=== PATIENT | female | born 1970 | race Caucasian/White ===

== ENCOUNTER 2024-10-18 21:36 | Emergency (ER) | payer OTHER, SELFPAY ==
--- NOTE | ~2024-10-18 | CT_ITS ---
CT Scan of the Chest without Contrast: Clinical Indication: Distal right clavicle sclerotic lesion Technique: Contiguous sections were acquired throughout the chest without intravenous contrast. Dose reduction technique was used on this scan by utilizing automated exposure control and iterative recon struction technique. The dose-length product (DLP) was 199.23 mGy-cm. Findings: There is no evidence of any significant mediastinal, hilar or axillary lymphadenopathy. Coronary jen ry calcifications are present. There is no evidence of pleural or pericardial effusion. There are a few loosely grouped subcentimeter groundglass nodules in the left lower lobe (axial image 63). Remainder of lungs are clear. Images through the upper abdomen reveal no abnormalities. Sclerotic area present at the distal right clavicle near the AC joint (axial image 14). Impression: Sclerotic lesion of the distal right clavicle near the AC joint. Precise etiology remains unclear, bu t there is narrow zone of transition, and no associated soft tissue mass or periosteal reaction. This is most likely a benign lesion. Comparison with prior exams would be useful. Consider follow-up exam or bone scan as indicated. A few loosely grouped subcentimeter groundglass nodules in left lower lobe could reflect a focal infe ctious/inflammatory process. Reviewed, dictated and finalized at location M. Impression: Sclerotic lesion of the distal right clavicle near the AC joint. Precise etiolo gy remains unclear, but there is narrow zone of transition, and no associated s oft tissue mass or periosteal reaction. This is most likely a benign lesion. Co mparison with prior exams would be useful. Consider follow-up exam or bone scan as indicated. A few loosely grouped subcentimeter groundglass nodules in left lower lobe coul d reflect a focal infectious/inflammatory process.
--- NOTE | ~2024-10-18 | XR_ITS ---
EXAMINATION: XR chest 2V Exam Date/Time: 10/18/2024 23:00 CDT HISTORY: Cough, SOB, WEAKNESS Comparison: None. RESULT: Lines, tubes, and devices: None. Lungs and pleura: Clear. Cardiomediastinal silhouette: Stable. Other: No acute osseous or upper abdominal finding. Sclerotic lesion in the distal right clavicle. IMPRESSION: No acute cardiopulmonary process. Sclerotic lesion in the distal right clavicle, may represent metastasis, enchondroma or bone infarct, amongst other lesions. Recommend comparison to outside studies if available to evaluate for stabilit y. Reviewed, dictated and finalized at location K. IMPRESSION: No acute cardiopulmonary process. Sclerotic lesion in the distal right clavicle, may represent metastasis, enchon droma or bone infarct, amongst other lesions. Recommend comparison to outside s tudies if available to evaluate for stability.
--- NOTE | ~2024-10-18 | CT_ITS ---
Non-contrast Head and Sinus CT History: Sinus congestion, fever Technique: Axial non-contrast imaging of the brain and sinuses was performed. Dose reduction techniq ue was used on this scan by utilizing automated exposure control and iterative reconstruction techniq ue. The dose-length product (DLP) was 681.00 mGy-cm. Findings: There is no evidence of intracranial hemorrhage, mass lesion, or acute infarct. Brain par enchyma appears normal. The ventricles and subarachnoid spaces are normal in size. The calvarium ap pears normal. The paranasal sinuses and mastoid air cells are clear. Impression: No significant abnormality seen in the brain or sinuses. Reviewed, dictated and finalized at location . Impression: No significant abnormality seen in the brain or sinuses.
[2024-10-18 22:00] VITALS: BP 137/101; PULSE 100; RESP 18; TEMP 36.2; O2SAT 97
[2024-10-18 23:39] LABS: Influenza A QL RT-PCR Negative (Negative); Influenza B QL RT-PCR Negative (Negative); RSV RNA, RT-PCR Negative (Negative); SARS-CoV-2 RNA PCR Negative (Negative)
[2024-10-19] VITALS (16 sets, daily range): BP systolic 110–125; BP diastolic 65–88; PULSE 85–106; RESP 13–23; TEMP 36.7; O2SAT 95–100
--- NOTE | 2024-10-19 00:26 | PC.NURSE ---
Pt presents to ED c/o feeling congested for 1.5months with no improvement, and febrile for last couple days. Per pt took tylenol 2hrs ago for 101 fever, upon being roomed pt temp 98. VS WNL
--- NOTE | 2024-10-19 00:42 | ED.URI ---
HPI - URI/Sore Throat General Chief Complaint: Upper Respiratory Infection Stated Complaint: Fever, cough, fatigue, congestion x 4 days Time Seen by Provider: 10/19/24 00:39 Source: patient and other Mode of arrival: ambulatory Limitations: no limitations History of Present Illness HPI Narrative: Patient presents with report of fever, cough, fatigue and congestion of 4 days duration but really with off/on symptoms over the past 1.5 months. She reports a temp of 101.5 at home which was the maximum. Non smoker. Denies any previous underlying respiratory conditions. Thinks it might be due to sinus drainage. Has been alternating ibuprofen and Tylenol (last dose [employer] was Tyenol). Increased weakness. Cough is productive of scant mucous. No hemoptysis. In mid August she was given a 5 day antibiotic (Z pack) by PCP. No chest pain but she will feel short of breath when she has coughing spells, not otherwise. Related Data Allergies Allergy/AdvReac Type Severity Reaction Status Date / Time No Known Allergies Allergy Verified 10/18/24 21:38 [facility] Social History Social History Smoking status: Never smoker Exam Narrative: GENERAL: Well-appearing, well-nourished, and in no acute distress. HEAD: Normocephalic, atraumatic. EYES: Non injected, non icteric ENT: Nares clear, no rhinorrhea or epistaxis. Gross auditory acuity intact. NECK: Supple. No meningismus. CHEST: Speaking in full sentences. No respiratory distress. Lungs clear without wheezes, crackles, rhonchi. Clavicles bilaterally grossly normal on appearance, no tenderness or deformity on palpation. HEART: Regular rate and rhythm. . ABDOMEN: Soft, nondistended. No rigidity or guarding. Not peritoneal EXTREMITIES: Normal range of motion. No lower extremity edema. SKIN: Warm, dry, no rash. NEURO: No focal deficits. Alert and oriented. Answering questions. Following commands. Normal speech without aphasia or dysarthria. PSYCH: Normal mood and affect. Course Vital Signs Vital signs: Vital Signs Temperature 97.1 F L 10/18/24 22:00 Pulse Rate 100 10/18/24 22:00 Respiratory Rate 18 10/18/24 22:00 Blood Pressure 137/101 H 10/18/24 22:00 Pulse Oximetry 97 10/18/24 22:00 Oxygen Delivery Room Air 10/18/24 22:00 Temperature 98.1 F 10/19/24 00:17 Pulse Rate 99 10/19/24 04:18 Respiratory Rate 16 10/19/24 04:18 Blood Pressure 115/74 10/19/24 04:18 Pulse Oximetry 99 10/19/24 04:18 Oxygen Delivery Room Air 10/18/24 22:00 MDM - URI/Sore Throat MDM Narrative Medical decision making narrative: Patient presents with report of cough, fatigue, and congestion as well as fever of 4 days duration. Has been dealing with symptoms intermittently for 6 weeks, s/p azithromycin course in August. In the emergency department she is afebrile with vital signs notable for hypertension, particularly diastolic blood pressure. Repeat has normalized without intervention. Viral swab negative. Questionable sclerotic lesion on CXR. Proceeded with CT imaging. No commentary on it on this imaging or other etiology elucidated. Discharged in stable condition and advised follow up with PCP. Rx for Karli field. Differential Diagnosis Differential diagnosis: Likely upper respiratory infection, sinusitis, viral infection, bronchitis, influenza and other (occult pneumonia; abscess) Lab Data Attestation: I reviewed the patient's lab results. Labs: Lab Results 10/18/24 Range/Units 22:50 Influenza A (RT-PCR) Negative (Negative) Influenza B (RT-PCR) Negative (Negative) RSV (RT-PCR) Negative (Negative) SARS-CoV-2 RNA (RT-PCR) Negative (Negative) Imaging Data Radiologist's impression: Impressions Chest X-Ray 10/18/24 23:39 IMPRESSION: No acute cardiopulmonary process. Sclerotic lesion in the distal right clavicle, may represent metastasis, enchondroma or bone infarct, amongst other lesions. Recommend comparison to outside studies if available to evaluate for stability. CT Head Stat Rad: No acute hemorrhage, hydrocephalus, or herniation. CT Sinuses: No acute sinusitis. Mild left ethmoid sinus mucosal thickening. CT Chest w/o contrast Stat Rad: No focal consolidation, pleural effusion, or pneumothorax. Heart within normal limits. Vasculature within normal limits. Thyroid within normal limits. Mediastinum in lymph nodes within normal limits. Superior abdomen within normal limits. Musculoskeletal with in normal limits. Discharge Plan Discharge Clinical Impression: Bronchitis Patient Disposition: Home Condition: Stable Instructions: Antibiotic Form, Acute Bronchitis (ED), Chronic Cough (ED) Additional Instructions: No evidence of a pneumonia or other concerning issues with your lungs on he either chest x-ray or CT scan. Your Xray was concerning for possible Sclerotic lesion in the distal right clavicle however CT scan did not comment on this, possible artifact. Follow-up with primary care physician. Return to the emergency department any new or worsening or unmanaged symptoms. Bronchitis can last for a while. No role for inhaler, steroid corn or antibiotics at this time but you can use the cough medicine that has been prescribed. No evidence of chronic sinusitis on CT scan. Patient Language: Croatian Prescriptions: New benzonatate 100 mg capsule 100 mg PO BID PRN (Reason: cough) Qty: 20 0RF Follow-up/Referrals: PHYSICIAN NOT ON STAFF,NONSTAFF [Primary Care Provider] - Stand Alone Forms: Work/School Release IP Time of Disposition: 04:03
--- OUTSIDE RECORDS SUMMARY | 2024-10-19 01:13 | XMS_ITS | Clinical Summary ---
Author Organization [facility] [employer] Address [address] [place] [address] Care Team Providers Care School Office Assistant Name Role Phone Thelma Wolff Johnie SWENSON Primary Care Provider [phone] Source Comments [facility],non-owned Affiliates and Associated Physician Practices is amultiple site organization consisting of ambulatory clinics and hospital sitesin [place], [place], [place] and [place]. This disclosure is being madepursuant to the Care Everywhere program and may not contain all information available regarding this patient. Last updated 18.[facility] Allergies No known active allergies Medications * Be aware that medications may not be up to date on this document. Alwaysverify current medications with the patient. aspirin EC (ECOTRIN) 81 MG tablet Take 1 (one) tablet by mouth once daily Active naproxen sodium (ALEVE) 220 MG tablet Take 1 (one) tablet by mouth 2 times daily Active Multiple Vitamins-Minerals (CENTRUM SILVER 50+WOMEN PO) Active loratadine (Claritin) 10 MG tabletIndications:N on-seasonal allergic rhinitis due to pollen TAKE 1 TABLET BY MOUTH ONCE DAILY 90 tablet 3 4 Active atorvastatin (Lipitor) 20 MG tabletIndications:M ixed hyperlipidemia TAKE 1 TABLET BY MOUTH EVERY DAY 90 tablet 3 4 Active citalopram (CeleXA) 20 MG tabletIndications:H ot flashes Take 1 (one) tablet by mouth once daily 90 tablet 3 4 Active azelastine-fluticas one (Dymista) 137-50 MCG/ACT nasal sprayIndications:No n-seasonal allergic rhinitis due to pollen SPRAY 2 (TWO) SPRAYS INTO EACH NOSTRIL ONCE DAILY - REASONS: HAYFEVER 23 g 5 5 Active methylPREDNISolone (Medrol Dosepak) 4 MG tablet Take by mouth as directed Take as directed by mouth per package instructions . 21 tablet 5 Active promethazine-DM syrup Take 5 mL by mouth every 6 hours as needed for Cough 120 mL 5 Active Active Problems Problem Noted Date Diagnosed Date Hyperlipidemia 12/26/2020 Sensorineural hearing loss ( SNHL) of left ear with restricted hearing of right ear 02/20/2017 Allergic rhinitis 12/26/2016 Encounter for health-related screening 1 Overview (08/16/2017): 12/17/2010: PAP NILM IMO update 08 17 2017 IBS (irritable bowel syndrome) 12/17/2010 Female stress incontinence 12/17/2010 Encounters Date Type Department Care Team Description 10/16/2024 9:20 PM CDT Video Visit [facility] [employer] [address] [phone] Alena Almodovar, GANG DRILL OPERATOR-SURVEY DIRECTOR Viral URI with cough 10/13/2024 10:00 AM CDT Office Visit [facility] [address] [place] [address], [address] [place] [phone] Aurea Carias PA-C Pain of right hip (Primary Dx); Tendinopathy of right gluteus medius; Piriformis syndrome of right side 10/13/2024 9:55 AM CDT Ancillary Procedure [facility] - Radiology [id number] [place] [phone] Aurea Carias PA-C Pain of right hip 09/22/2024 Telephone [facility] - Internal Med [address] [place] [address], [facility] [place] [address] Thelma Wolff, Physical Therapy 09/03/2024 4:15 PM CDT Video Visit [address] [phone] Joseph Bonilla APRN-SURVEY DIRECTOR Rhinosinusitis ; Acute cough 07/22/2024 Refill [facility] - Internal Med [address] [facility] [place] [phone] Thelma Wolff, Refill Request from Last 3 Months Immunizations Immunization Administration Dates Next Due COVID PFIZER 12+YR 30MCG/0.3mL 02/19/2024 Covid Moderna primary monova lent 12+ yr 0.5mL 04/22/2021,07/19/2020,06/21/2020 HEP B VACCINE, ADULT 3 DOSE 05/10/2024, INFLUENZA VACCINE 02/19/2024,03/07/2021 TDAP (7yrs+) 02/15/2016 ZOSTER HISTORIC VACCINE 08/10/2021 Zoster Hzv Vacc Recombinant Inj Im 04/22/2021 Family History Medical History Relation Name Comments CAD (Coronary Artery Disease) Father Cancer - Colon Maternal Grandmother Not s ure when dx Cancer - Colon Mother Dx at 68 at s tage 4 with mets Relation Name Status Comments Father Alive Maternal Grandmother Mother Social History Tobacco Use Types Packs/Day Years Used Date Smoking Tobacco: Never Smokeless Tobacco: Never Tobacco Cessation:Counseling Given: Not Answered Alcohol Use Standard Drinks/Week Comments No 0 (1 standard drink = 0.6 oz pur e alcohol) PHQ-2 Answer Date Recorded Patient Health Questionnaire-2 Score 0 10/16/2024 Comments No Sex and Gender Information Value Date Recorded Sex Assigned at Female 02/26/2021 2:48 PM CDT 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 Gender Identity Female 02/26/2021 2:48 PM CDT Sexual Orientation Straight 02/26/2021 2: 48 PM CDT Last Filed Vital Signs Vital Sign Reading Time Taken Comments Blood Pressure 120/80 03/09/2024 8:10 AM CDT Pulse 72 03/09/2024 8:10 AM CDT Temperature 36.2 C (97.1 F) 12/06/2021 8:42 AM CDT Respiratory Rate 18 03/09/2024 8:10 AM CDT Oxygen Saturation 98% 03/09/2024 8:10 AM CDT Inhaled Oxygen Concentration - - Weight 82.6 kg (182 lb 3.2 oz) 03/09/2024 8:10 A M CDT Height 160 cm (5' 3) 03/09/2024 8:10 AM CDT Body Mass Index 32.28 03/09/2024 8:10 AM CDT Plan of Treatment Upcoming Encounters Date Type Department Care Team (Late st Contact Info) Description 10/28/2024 7:50 AM CDT Office Visit [facility] [address] [place] [address], [place] [phone] Thelma Wolff DO [address] [place] [address] OF [facility] [place] [phone] Health Maintenance Due Date Last Done Comments COLOGUARD (AGES 45-75) - COLON CA SCREENING 1970 CT COLONOGRAPHY - COLON CA SCREENING 1970 FIT - COLON CA SCREENING 1970 FLEX SIG - COLON CA SCREENING 1970 PNEUMOCOCCAL VACCINE 50+ (1 of 1 - PCV) 2020 MAMMOGRAM 12/22/2022 12/22/2020 HEPATITIS B VACCINE (3 of 3 - 19+ 3-dose series) 09/07/2024 05/10/2024, 03/09/2024 DTAP/TDAP/TD VACCINES (2 - Td or Tdap) 02/14/2026 02/15/2016 PAP with HPV 12/06/2026 12/06/2021 SCREENING FOR DIABETES 03/09/2027 , 03/09/2024, 06/07/2021, Additional history exists COLON MONITORING 02/16/2028 02/15/2021, , 02/15/2021 Colorectal Cancer Screening 02/16/2028 COLONOSCOPY - COLON CA SCREENING 02/15/2031 02/15/2021, 02/15/2021, 02/15/2021 HEPATITIS C SCREENING Completed 11/30/2020 HIV SCREENING Completed 11/30/2020 ZOSTER VACCINE Completed 08/10/2021, 04/22/2021 COVID-19 VACCINE Completed 02/19/2024, 09/2020, 07/19/2020, Additional history exists INFLUENZA VACCINE Completed 02/19/2024, 03/07/2021 DEPRESSION SCREENING Completed 09/03/2024, 02/23/2024, 12/06/2021 HIB VACCINE Aged Out No longer eligi ble based on patient's age to complete this topic HPV VACCINE Aged Out No longer eligi ble based on patient's age to complete this topic MENINGOCOCCAL (Group B) VACCINE SHARED DECISION-MAKING Aged Out No longer eligible based on patient's age to complete this topic MENINGOCOCCAL GROUPS A/C/Y/W VACCINE Aged Out No longer eligible based on patient's age to complete this topic Procedures Procedure Name Priority Date/Time Associated Diagnosis Comments XR HIP RIGHT 2VW OR MORE Routine 10/13/2024 9:55 AM CDT Pain of right hip COMPREHENSIVE METABOLIC PANEL Routine 03/09/2024 9:32 AM CDT Hyperlipidemia, unspecified hyperlipidemia type HPV DETECTION HIGH RISK STAR Routine 12/06/2021 9:48 AM CDT Well woman exam with routine gynecological exam ENDOSCOPY, COLON, SCREENING Routine 02/15/2021 12:07 PM CDT Screen for colon cancer MAMMO BILAT SCREENING Routine 12/22/2020 3:49 PM CDT Encounter for screening mammogram for malignant neoplasm of breast HEPATITIS C AB SCREEN RFLX NAAT QUANT Routine 11/30/2020 10:25 AM CDT Need for hepatitis C screening test HIV-1 HIV-2 ANTIBODY + HIV P24 AG PANEL Routine 11/30/2020 10:25 AM CDT Encounter for screening for HIV from Last 3 Months or Most Recently Relevant to Health Maintenance Results * XR Hip Right 2Vw or More (10/13/2024 9:55 AM CDT) Narrative [facility] [place] [address] - 10/13/2024 9:57 AM CDT Please see progress note in Epic for results. Aurea Carias PA-C DIAGNOSTIC IMAGING ORDERAB LES Final Result [facility] [address] * (ABNORMAL) COMPREHENSIVE METABOLIC PANEL (03/09/2024 9:32 AM CDT) BUN 18 7 - 26 mg/dL 03/09/2024 10:31 AM [facility] Creatinine 0.85 0.56 - 0.96 mg/dL 03/09/2024 10:31 AM [facility] Sodium 141 136 - 145 mmol/L 03/09/2024 10:31 AM [facility] Potassium 4.3 3.5 - 4.5 mmol/L 03/09/2024 10:31 AM [facility] Chloride 106 98 - 107 mmol/L 03/09/2024 10:31 AM [facility] CO2 27 22 - 29 mmol/L 03/09/2024 10:31 AM [facility] Glucose 107 70 - 115 mg/dL 03/09/2024 10:31 AM [facility] Calcium 9.6 8.4 - 10.2 mg/dL 03/09/2024 10:31 AM [facility] Protein Total 7.2 6.0 - 8.3 g/dL 03/09/2024 10:31 AM [facility] Albumin 4.2 3.4 - 5.0 g/dL 03/09/2024 10:31 AM [facility] Bilirubin Total 0.3 0.2 - 1.2 mg/dL 03/09/2024 10:31 AM [facility] Alkaline Phosphatase 82 40 - 150 U/L 03/09/2024 10:31 AM [facility] ALT 25 5 - 55 U/L 03/09/2024 10:31 AM [facility] AST 18 5 - 34 U/L 03/09/2024 10:31 AM CDT [facility] Anion Gap 8 6 - 16 03/09/2024 10:31 AM [facility] BUN/Creatinine Ratio 21 7 - 23 03/09/2024 10:31 AM [facility] Osmolality Calculated 294 275 - 295 mOsm/kg 03/09/2024 10:31 AM [facility] Albumin/Globulin Ratio 1.4 1.1 - 2.3 03/09/2024 10:31 AM [facility] eGFR by CKD-EPI 82(L) >=90 mL/min/1.7 3 m2 03/09/2024 10:31 AM [facility] Blood BLOOD SPECIMEN / Unknown Lab Venipuncture / Unknown 03/09/2024 9:32 AM CDT 03/09/2024 10:01 AM CDT Thelma Wolff DO LAB - CHEMISTRY ORDERABLES Fi nal Result [address] [address], [facility] [phone] * HPV DETECTION HIGH RISK STAR (12/06/2021 9:48 AM CDT) High Risk Human Papilloma Result Not detected Not detected 12/11/2021 2:21 PM CDT [facility] High Risk Human Papilloma Interp 12/11/2021 2:21 PM CDT [facility] Comment:High Risk Human Homar lloma Virus was Not Detected. Pathology/Cytolo gy MISCELLANEOUS SAMPLES / Unknown 12/06/2021 9:48 AM CDT 12/10/2021 11:23 AM CDT Narrative [facility] - 12/11/2021 2:21 PM CDT Nucleic acid isolated from the specimen was analyzed with a nucleic acid amplification test (FDA approved Gen-Probe HPV Assay) to detect high risk human papilloma virus (Types: 16, 18, 31, 33, 35, 39, 45, 51, 52, 56, 58, 59, 66, and 68). The reference range is Not Detected. Comment: These test results should not be used as the sole basis for clinical assessment and treatment of patients. These results should always be correlated with other available data (cytology, histology, and clinical information). us Thelma Wolff DO LAB - MICROBIOLOGY ORDERABLES Final Result [facility] [address] [facility] [place] [address], [facility] [phone] * ENDOSCOPY, COLON, SCREENING (02/15/2021 12:07 PM CDT) Report Endoscopy POC _ Patient Name: Deana Meza Procedure Date: 02/15/2021 12:07 PM Date of : 1970 Admit Type: Outpatient Age: 50 Gender: Female Ethnicity: Not or Race: White Attending MD: Karin Pfeiffer MD, _ Procedure: Colonoscopy Indications: Screening for colorectal malignant neoplasm Providers: Karin Pfeiffer MD (Doctor), Katherine Hernandez, RN, Leonila Kauffman, RN Patient Profile: 50F presents for screening colonoscopy avg risk Referring MD: Thelma Wolff DO (Referring MD) Medicines: Monitored Anesthesia Care Complications: No immediate complications. _ Estimated Blood Loss: Estimated blood loss was minimal. Procedure: Pre-Anesthesia Assessment: - Prior to the procedure, a History and Physical was performed, and patient medications and allergies were reviewed. The patient's tolerance of previous anesthesia was also reviewed. The risks and benefits of the procedure and the sedation options and risks were discussed with the patient. All questions were answered, and informed consent was obtained. Prior Anticoagulants: The patient has taken no previous anticoagulant or antiplatelet agents. ASA Grade Assessment: II - A patient with mild systemic disease. After reviewing the risks and benefits, the patient was deemed in satisfactory condition to undergo the procedure. After I obtained informed consent, the scope was passed under direct vision. Throughout the procedure, the patient's blood pressure, pulse, and oxygen saturations were monitored continuously. The Colonoscope was introduced through the anus and advanced to the cecum, identified by appendiceal orifice and ileocecal valve. The colonoscopy was performed without difficulty. The patient tolerated the procedure well. The quality of the bowel preparation was fair. The ileocecal valve, appendiceal orifice, and rectum were photographed. Impression: - Preparation of the colon was fair. - Two 4 to 5 mm polyps in the rectum and in the sigmoid colon, removed with a cold biopsy forceps. Resected and retrieved. Findings: The perianal and digital rectal examinations were normal. Two sessile polyps were found in the rectum and sigmoid colon. The polyps were 4 to 5 mm in size. These polyps were removed with a cold biopsy forceps. Resection and retrieval were complete. No additional abnormalities were found on retroflexion. _ Recommendation: - Patient has a contact number available for emergencies. The signs and symptoms of potential delayed complications were discussed with the patient. Return to normal activities tomorrow. Written discharge instructions were provided to the patient. - High fiber diet. - Repeat colonoscopy in 09-22 for surveillance based on pathology results. Procedure Code(s): --- Professional --- 94567, Colonoscopy, flexible; with biopsy, single or multiple --- Technical --- 10566, Colonoscopy, flexible; with biopsy, single or multiple Diagnosis Code(s): --- Professional --- Z12.11, Encounter for screening for malignant neoplasm of colon K62.1, Rectal polyp K63.5, Polyp of colon --- Technical --- Z12.11, Encounter for screening for malignant neoplasm of colon K62.1, Rectal polyp K63.5, Polyp of colon CPT copyright 2019 [employer]. All rights reserved. The codes documented in this report are preliminary and upon automatic pinsetter adjuster review may be revised to meet current compliance requirements. Karin Pfeiffer MD, 02/15/2021 1:13:06 PM This report has been signed electronically. Number of Addenda: 0 Note Initiated On: 02/15/2021 12:07 PM [facility] 02/15/2021 12:0 7 PM CDT Narrative Procedure Note Karin Pfeiffer MD - 02/15/2021 1:13 PM CDT Colonoscopy 2 polyps resected Fair prep Surveillance 5-7 yrs pending path D/w Deana us Karin Pfeiffer MD GI PROCEDURE ORDERABLES Edited R esult - Final [facility] * MAMMO BILAT SCREENING (12/22/2020 3:49 PM CDT) Anatomical Region Laterality Modality Breast Bilateral Mammography 12/25/2020 7:59 AM CDT Impressions 12/25/2020 10:39 AM CDT IMPRESSION: No mammographic evidence of malignancy. RECOMMENDATION: Screening mammography in one year, pending no interval breast concerns. Patient will be notified of the results by lay letter. OVERALL ASSESSMENT: BI-RADS CATEGORY 1: NEGATIVE. Report dictated by Alena Cespedes MD (residential plumber). I, Dr. TUSHAR IRELAND have personally reviewed and interpreted this examination/study. This report was electronically signed by TUSHAR IRELAND on 12/25/2020 10:39 AM . Narrative 12/25/2020 10:39 AM CDT EXAMINATION: DIGITAL MAMMO BILAT SCREENING WITH TOMOSYNTHESIS AND WITH CAD DATE OF EXAM: 12/22/2020 HISTORY: Screening. 50-year-old asymptomatic female presenting for routine screening mammogram. Note is made that patient received a Covid vaccine in the left arm on 07/19/2020. RISK ASSESSMENT CALCULATION: Patient completed a breast cancer risk assessment during her appointment. Based upon the information she provided and her mammographic breast density, her lifetime risk of developing breast cancer is 13 % (Average Risk <15%; Intermediate / Moderate Risk 15-19%; High Risk > 20%). COMPARISON: Patient does not recall when/where she had her first mammogram. The study will be treated as the baseline mammogram. TECHNIQUE: Tomosynthesis (3-D) and reconstructed C - view (synthetic 2-D) images acquired and reviewed in the bilateral craniocaudal and mediolateral oblique projections. Computer-aided detection (CAD) was utilized. BREAST PARENCHYMAL COMPOSITION: Category B: There are scattered areas of fibroglandular density. FINDINGS: There are no suspicious findings or evidence of malignancy on mammography. Scattered benign calcifications are seen in the left breast. Thelma Wolff DO MAMMO ORDERABLES Final Result * HEPATITIS C AB SCREEN RFLX NAAT QUANT (11/30/2020 10:25 AM CDT) Hepatitis C Antibody Non-react aleena Non-reac tive 11/30/2020 11:46 AM CDT [facility] Comment:Hepatitis C Antibody screen indicates no serologic evidence of past or current infection with Hepatitis C Virus. Patients with unexplained liver disease who are immunocompromised or suspected of having acute Hepatitis C infection may benefit from Nucleic Acid Test (SULY) for Hepatitis C Viral RNA to confirm Hepatitis C status. Blood BLOOD SPECIMEN / Unknown Lab Venipuncture / Unknown 11/30/2020 10:25 AM CDT 11/30/2020 10:42 AM CDT us Thelma Wolff DO LAB - CHEMISTRY ORDERABLES Fi nal Result [facility] [address] [place] [address], [place] [phone] * HIV-1 HIV-2 ANTIBODY + HIV P24 AG PANEL (11/30/2020 10:25 AM CDT) HIV Antigen/Antibod y 1 & 2 Non-reacti ve Non-react aleena 11/30/2020 11:46 AM CDT [facility] Comment:Neither HIV-1 p24 An tigen nor HIV-1/HIV-2 Antibodies are detected. Blood BLOOD SPECIMEN / Unknown Lab Venipuncture / Unknown 11/30/2020 10:25 AM CDT 11/30/2020 10:42 AM CDT Thelma Wolff DO LAB - CHEMISTRY ORDERABLES Fi nal Result [address] [address], [facility] [phone] from Last 3 Months or Most Recently Relevant to Health Maintenance Insurance T AET Care Teams School Office Assistant Relationship Specialty Start Date End Date Thelma Wolff DO PCP - General 01/17/19
--- OUTSIDE RECORDS SUMMARY | 2024-10-19 01:13 | XMS_ITS | Encounter Summary ---
Author Organization [facility] Health Address [address] [place] [address] Care Team Providers Care Cream Gatherer Name Role Phone Thelma Wolff DO Primary Care Provider [phone] Encounter Details Date Type Department Care Team (Late st Contact Info) Description 09/26/2022 Telephone [facility] [address] [place] [address], [place] [phone] Thelma Wolff DO [address] [place] [address] [place] [phone] Social History Tobacco Use Types Packs/Day Years Used Date Smoking Tobacco: Never Smokeless Tobacco: Never Alcohol Use Standard Drinks/Week Comments No 0 (1 standard drink = 0.6 oz pur e alcohol) PHQ-2 Answer Date Recorded PHQ2 TOTAL SCORE 0 12/06/2021 Comments No Sex and Gender Information Value Date Recorded Sex Assigned at Female 02/26/2021 2:48 PM CDT 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 No / Unsure 09/27/2022 9:25 AM CDT documented as of this encounter Plan of Treatment Upcoming Encounters Date Type Department Care Team (Late st Contact Info) Description 10/28/2024 7:50 AM CDT Office Visit [facility], [place] [phone] Thelma Wolff DO [address] [place] [address] DIV OF [facility] [place] [phone] documented as of this encounter Visit Diagnoses Not on filedocumented in this encounter Care Teams Cream Gatherer Relationship Specialty Start Date End Date Thelma Wolff DO PCP - General 01/17/19 documented as of this encounter
[2024-10-19] MEDS: BENZONATATE 100 MG CAPSULE PO (01:33)
== END 2024-10-19 04:15 | disposition home or self-care (01) ==
PROVIDERS: Emergency Provider Student in an Organized Health Care Education/Training Program
DX: J40 Bronchitis, not specified as acute or chronic (principal); Z20.822 Contact with and (suspected) exposure to COVID-19
CPT/HCPCS: 70450; 70486; 71046; 71250; 87637; 99284; A9270